=== PATIENT | female | born 1965 | race Caucasian/White ===

== ENCOUNTER 2016-08-20 21:36 | Emergency (ER) | payer OTHER ==
[2016-08-20] MEDS ORDERED: ACETAMINOPHEN/CODEINE TABLET PO ONE (22:04)
--- NOTE | 2016-08-20 22:09 | Emergency Department Record ---
History of Present Illness - General Chief Complaint: Ankle/Foot Injury Stated Complaint: INJURY TO LEFT ANKLE Time Seen by Provider: 08/20/16 22:02 Source: Patient Mode of Arrival: Ambulatory Limitations: No limitations - History of Present Illness Initial Comments: The patient is here due to injuring her L ankle about an hour ago. She was trying to unhitch a trailer and fell twisting her L ankle in a hole. Now it is quite painful and swollen and she is having a lot of trouble walking. Complaint: Ankle injury Onset/Timin -: Hour(s) Type of Injury: Inversion Place: Street/outdoors Severity: Severe Severity scale (1-10): 10 Improves With: Nothing Context: Walking - Related Data Home Medications Medication Instructions Recorded Confirmed Last Taken Baclofen 20 mg PO TID PRN 08/20/16 08/20/16 Unknown Glipizide [Glipizide ER] 2.5 mg PO DAILY 08/20/16 08/20/16 Unknown Ibuprofen [Motrin] 800 mg PO Q8H PRN 08/20/16 08/20/16 Unknown Lisinopril [Zestril] 10 mg PO DAILY 08/20/16 08/20/16 Unknown Lovastatin 10 mg PO DAILY 08/20/16 08/20/16 Unknown Metformin HCl 1,000 mg PO BID 08/20/16 08/20/16 Unknown Spironolactone [Aldactone] 25 mg PO DAILY 08/20/16 08/20/16 Unknown Previous Rx's Medication Instructions Recorded Acetaminophen with Codeine 1 - 2 tab PO Q6H #20 tab 08/20/16 [Tylenol #3] Allergies Allergy/AdvReac Type Severity Reaction Status Date / Time hydrocodone Allergy hyper Verified 08/20/16 21:57 nystatin Allergy RASH Verified 08/20/16 21:57 Penicillins Allergy ANAPHYLAXIS Verified 08/20/16 21:57 Travel Screening - Travel/Exposure Within Last 30 Days Have you traveled within the last 30 days?: No Review of Systems Constitutional: Denies: Chills, Fever Eyes: Denies: Eye discharge ENT: Denies: Congestion Respiratory: Denies: Cough, Dyspnea Past Medical History - SOCIAL HISTORY Smoking Status: Never smoker Alcohol Use: None Drug Use: None - RESPIRATORY Hx Respiratory Disorders: No - CARDIOVASCULAR Hx Cardio Disorders: Yes Hx Hypertension: Yes - NEURO Hx Neuro Disorders: No - GI Hx GI Disorders: No - Hx Genitourinary Disorders: No - ENDOCRINE Hx Endocrine Disorders: Yes Hx Diabetes: Yes - MUSCULOSKELETAL Hx Musculoskeletal Disorders: Yes Hx Arthritis: Yes Comment:: Degenerative Disk - PSYCH Hx Psych Problems: No - HEMATOLOGY/ONCOLOGY Hx Hematology/Oncology Disorders: No Family Medical History Any Significant Family History?: No Physical Exam - General General Appearance: Alert, Oriented x3, Cooperative, No acute distress - Head Head exam: Atraumatic, Normocephalic, Normal inspection - Eye Eye exam: Normal appearance, PERRL - Extremities Extremities exam: Normal capillary refill, Tenderness (there is tenderness to the distal L lateral malleolus.), Other (the L foot is nontender and is NVI.). negative: Normal inspection (There is mod edema over the L lateral malleolus.), Full ROM Course Vital Signs 08/20/16 21:58 Temperature 97.5 F L Pulse Rate [ 81 Pulse Ox Probe] Respiratory 20 Rate Blood Pressure 153/82 [Left Arm] Pulse Ox 96 - Reevaluation(s) Reevaluation #1: I did explain to the patient the xrays are neg for any fx or dislocation. She is to wear the splint for 3 days and use crutches and take Motrin or Tylenol # 3 for pain. 08/20/16 22:31 Medical Decision Making - Data Complexity MDM Data: X-Ray Ordered and/or Reviewed - Radiology Data Radiology results: Report reviewed (L Ankle: No acute fx of dislocation.) Disposition Disposition: Discharge Clinical Impression: Left ankle sprain Qualifiers: Encounter type: initial encounter Involved ligament of ankle: unspecified ligament Qualified Code(s): S93.402A - Sprain of unspecified ligament of left ankle, initial encounter Disposition: Home, Self-Care Condition: (1) Good Instructions: Ankle Sprain (ED) Additional Instructions: Please ice and elevate the ankle when possible and do not weight bear on the L leg for 3 days. Use crutches for walking. Remove the splint on Sunday and use an melanie wrap to the L ankle. Please see your PCP if not better in 4-5 days. Prescriptions: Acetaminophen with Codeine [Tylenol #3] 1 - 2 tab PO Q6H #20 tab Forms: Patient Portal Access Time of Disposition: 22:34
== END 2016-08-20 23:07 | disposition home or self-care (01) ==
LOC: ER 21:36
DX: S93.402A Sprain of unspecified ligament of left ankle, initial encounter (principal); X50.1XXA Overexertion from prolonged static or awkward postures, initial encounter; Y92.410 Unspecified street and highway as the place of occurrence of the external cause
CPT/HCPCS: 99283